=== PATIENT | male | born 2000 | race Caucasian/White ===

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

== ENCOUNTER → 2020-01-08 | Outpatient (CLI) | payer BC, OTHER ==
[~2020-01-08] MED LIST: ZOFR4TAB14 PO
== END ==
LOC: M LABSMTC 10:37
PROVIDERS: ATTEND Family Medicine
DX: Z11.59 Encounter for screening for other viral diseases (principal); Z20.828 Contact with and (suspected) exposure to other viral communicable diseases